=== PATIENT | female | born 1955 | race Hispanic/Latino ===

== ENCOUNTER 2021-09-23 13:24 | Outpatient (CLI) | payer BC | END 2021-09-23 13:25 | disposition home or self-care (01) | LOC: CSHCT 13:24 | PROVIDERS: ATTEND Thoracic Surgery (Cardiothoracic Vascular Surgery) | DX: I71.2 Thoracic aortic aneurysm, without rupture (principal) | CPT/HCPCS: 71275; 82565 ==